=== PATIENT | male | born 1980 | race Caucasian/White ===

== ENCOUNTER 2016-06-16 10:20 | Emergency (ER) | payer SELFPAY ==
[~2016-06-16] VITALS: Ht 182.9 cm; Wt 97.0 kg
[2016-06-16 10:22] VITALS: BP 134/74; PULSE 88; RESP 16; TEMP 97.7; O2SAT 96
--- NOTE | 2016-06-16 12:06 | PD ---
HPI Chief Complaint: Skin Problem Time Seen by Provider: 12:03 Travel History International Travel<30 days: No Contact w/Intl Traveler<30days: No Traveled to known affect area: No History of Present Illness HPI Patient is a 36-year-old male who presents emergency for evaluation of bug bites. Patient states he is living in a [facility] house and they have been removing carpet, he woke up this morning with several red, firm areas on his arm and leg. He states that he feels like his joints are achy. CT anaphylaxis. He denies any IV drug use. He further denies any fever, chills, nausea, vomiting, chest pain, shortness of breath, abdominal pain. PFSH Past Medical History Medical History: Denies Significant Hx Family History Family History: Negative Social History Alcohol Use: No Tobacco Use: Yes Substance Use: No Allergies-Medications (Allergen,Severity, Reaction): Coded Allergies: Codeine (Verified Allergy, Severe, Anaphylaxis, 06/16/16) Reported Meds & Prescriptions Reported Meds & Active Scripts Active No Active Prescriptions or Reported Medications Review of Systems Except as stated in HPI: all other systems reviewed are Neg Skin: Positive Itching, Positive Change in Pigmentation, Positive Lesions Physical Exam Narrative GENERAL: Well-nourished, well-developed patient. SKIN: Warm and dry. Left lateral lower leg has a 3 cm area of erythema and warmth, no fluctuance noted. Right anterior thigh with 3 cm area of erythema and warmth, no fluctuance noted. Multiple macular lesions to hands and legs, no induration or exudate noted. HEAD: Normocephalic. EYES: No scleral icterus. No injection or drainage. NECK: Supple, trachea midline. No JVD or lymphadenopathy. CARDIOVASCULAR: Regular rate and rhythm without murmurs, gallops, or rubs. RESPIRATORY: Breath sounds equal bilaterally. No accessory muscle use. GASTROINTESTINAL: Abdomen soft, non-tender, nondistended. MUSCULOSKELETAL: No cyanosis, or edema. BACK: Nontender without obvious deformity. No CVA tenderness. Data Data Last Documented VS Vital Signs Date Time Temp Pulse Resp B/P Pulse Ox O2 Delivery O2 Flow Rate FiO2 06/16/16 10:22 97.7 88 16 134/74 96 Room Air Orders Methylprednisolone So Succ Inj (Solumedr (06/16/16 12:15) Cephalexin (Keflex) (06/16/16 12:15) [facility] Medical Decision Making Medical Screen Exam Complete: Yes Emergency Medical Condition: Yes Interpretation(s) Vital Signs Date Time Temp Pulse Resp B/P Pulse Ox O2 Delivery O2 Flow Rate FiO2 06/16/16 10:22 97.7 88 16 134/74 96 Room Air Differential Diagnosis Allergic reaction secondary to insect bite versus contact dermatitis versus cellulitis versus other Narrative Course Patient is a 36-year-old male who presents emergency department for evaluation of insect bites. Patient is in a [facility] house and reports that he woke up this morning with multiple reddened areas on his legs. Will give Solu-Medrol and Keflex now. Erythematous areas are somewhat improved after administration of steroids. Patient will be provided with a Medrol Dosepak as well as Keflex. He is encouraged to thoroughly clean his environment to eradicate any possible infestation. He is encouraged to return to emergency department for any new or worsening symptoms. He verbalizes understanding of these instructions. Patient stable for discharge. Diagnosis Primary Impression: Insect bite Qualified Code: W57.XXXA - Insect bite, initial encounter Referrals: Primary Care Physician Patient Instructions: General Allergic Reaction (ED), General Instructions, Insect Bite or Sting (ED) Additional Instructions: Take medications as directed Thoroughly clean home environment Follow-up with your doctor Return to emergency department for new or worsening symptoms Med/Other Pt SpecificInfo: Prescription(s) given Scripts Cephalexin (Keflex)500 Mg [id number] Mg PO Q12H 7 Days Ref 0 Prov:Wendy Ruiz 06/16/16 Methylprednisolone Dosepak (Medrol Dosepak)4 Mg Dspk4 Mg PO DIRECTED #1 DSPK Ref 0 Per Pharmacist direction Prov:Wendy Ruiz 06/16/16 Disposition: 01 DISCHARGE HOME Condition: Stable Wendy Ruiz Jun 16, 2016 12:06
[2016-06-16] MEDS ORDERED: CEPHALEXIN MONOHYDRATE 500 MG CAP PO ONE (12:15)
[2016-06-16] MEDS ORDERED: methylPREDNISolone SOD SUCC 125 MG/2 ML VIAL IM ONE (12:15)
[2016-06-16] MEDS ORDERED: MEDR4PAK PO (13:23)
[2016-06-16] MEDS ORDERED: CEPH-460 PO (13:23)
== END 2016-06-16 13:33 | disposition home or self-care (01) ==
LOC: NEPB 10:20
DX: S70.361A Insect bite (nonvenomous), right thigh, initial encounter (principal); W57.XXXA Bitten or stung by nonvenomous insect and other nonvenomous arthropods, initial encounter; Y93.84 Activity, sleeping; Y92.099 Unspecified place in other non-institutional residence as the place of occurrence of the external cause
CPT/HCPCS: 96372; 99282; J2930